=== PATIENT | male | born 2000 | race Caucasian/White ===

== ENCOUNTER 2022-06-10 18:32 | Emergency (ER) | payer SELFPAY ==
[~2022-06-10 18:32] MED LIST: Iopamidol-370 76% 500 ML 1 ML ONE
[2022-06-10] MEDS ORDERED: methylPREDNISolone Sod Succ/PF 125 MG/2 ML VIAL ONE (19:05)
[2022-06-10] MEDS ORDERED: Acetaminophen 500 MG TAB ONE (19:05)
[2022-06-10 19:25] LABS: #Eosinphils 0.1 thou/uL (0.0-0.7); #Lymphocytes 0.6 thou/uL (1.20-3.40); #Monocytes 0.8 thou/uL (0.11-0.59); #Neutrophils 4.6 thou/uL (1.40-6.50); %Basophils 0.4 % (0.0-1.0); %Eosinophils 0.9 % (0.0-10.0); %Lymphocytes 10.2 % (21.0-51.0); %Monocytes 12.6 % (0.0-10.0); %Neutrophils 75.9 % (42.0-75.0); Hemoglobin 15.8 g/dL (14.0-18.0); Mean Corpuscular HGB CONC 34.9 g/dL (32.0-36.0); Mean Corpuscular Hemoglobin 31.5 pg (27.0-31.0); Mean Corpuscular Volume 90.3 fl (78.0-98.0); Platelet Count 243 thou/uL (130-400); RBC Distribution Width 12.1 % (11.5-14.5); Red Blood Cell (RBC) Count 5.01 mill/uL (4.70-6.10)
[2022-06-10 19:40] LABS: ALT (SGPT) 156 U/L (8-55); AST (SGOT) 49 U/L (5-34); Albumin 4.6 g/dL (3.5-5.0); Alkaline Phosphatase 75 U/L (40-110); Anion Gap 13 mmol/L (10-20); BUN (Urea Nitrogen) 11 mg/dL (8.9-20.6); Bilirubin, Total 0.5 mg/dL (0.2-1.2); Calc. Creatinine Clearance 0 mL/min (70-130); Calcium 9.1 mg/dL (7.8-10.44); Carbon Dioxide 21 mmol/L (22-29); Chloride 105 mmol/L (98-107); Estimated GFR 116; Globulin 3.2 g/dL (2.4-3.5); Glucose 102 mg/dL (70-105); Potassium 3.6 mmol/L (3.5-5.1); Protein, Total 7.8 g/dL (6.0-8.3); Sodium 135 mmol/L (136-145)
[2022-06-10 20:17] LABS: SARS-CoV-2 NAA Rapid Test Not Detected (NotDetected)
[2022-06-10] MEDS ORDERED: Albuterol Sulfate 2.5 mg/3 ml Neb ONE (20:28)
== END 2022-06-10 22:44 | disposition home or self-care (01) ==
LOC: ERS 18:32
DX: J45.901 Unspecified asthma with (acute) exacerbation (principal); J10.1 Influenza due to other identified influenza virus with other respiratory manifestations; Z20.822 Contact with and (suspected) exposure to COVID-19
CPT/HCPCS: 71045; 71275; 80053; 84484; 85025; 93005; 94640; 94760; 96374; J2930; J7611; Q9967